=== PATIENT | female | born 1955 | race Caucasian/White ===

== ENCOUNTER 2023-04-08 09:08 | Outpatient (CLI) | payer MEDICARE, OTHER, SELFPAY | END 2023-04-08 09:09 | disposition home or self-care (01) | LOC: NFLDREF 04-11 01:27 | PROVIDERS: PCP Family Medicine; Referring Provider Family Medicine; Visit Provider Family Medicine | DX: E78.00 Pure hypercholesterolemia, unspecified (principal); R03.0 Elevated blood-pressure reading, without diagnosis of hypertension; M81.0 Age-related osteoporosis without current pathological fracture | CPT/HCPCS: 80053; 80061; 82306 ==

== ENCOUNTER 2023-07-08 08:08 | Outpatient (CLI) | payer MEDICARE, OTHER, SELFPAY | END 2023-07-08 08:09 | disposition home or self-care (01) | LOC: NFLDREF 07-10 07:38 | PROVIDERS: PCP Family Medicine; Referring Provider Family Medicine; Visit Provider Family Medicine | DX: E87.1 Hypo-osmolality and hyponatremia (principal) | CPT/HCPCS: 80048 ==

== ENCOUNTER 2023-10-02 13:40 | Outpatient (CLI) | payer MEDICARE, OTHER, SELFPAY ==
--- OUTSIDE RECORDS SUMMARY | 2023-10-02 13:43 | XMS_ITS | Clinical Summary ---
Author Organization [facility] Address [address] [place] [address] Care Team Providers Care Livestock Judging Coach Name Role Phone Rosana Quiroz MD Primary Care Provider [phone] Shara Trimble MD Unavailable [phone] Allergies Active Allergy Reactions Criticality Noted Date Comments Ciprofloxacin-Dexamethasone 07/27/19 15 rash Meperidine 01/05/2009 congestion Penicillin V 06/05/2007 Rash, hives Medications Medication Sig Dispensed Refills Start Date End Date Status amLODIPine (NORVASC) 2.5 MG tablet Take 2.5 mg by mouth every morning 08/12/2021 Active aspirin (ASA) 81 MG EC tablet Take by mouth as needed Active cholecalciferol (VITAMIN D3) 25 mcg (1000 units) capsule Take 1,000 Units by mouth every morning Active Active Problems Problem Noted Date Diagnosed Date Hyperparathyroidism (H24) 10/12/2021 Overview: Added automatically from request for surgery [id number] Immunizations Name Administration Dates Next Due COVID-19 Monovalent Booster 18+ (Moderna) 2021 Flu, Unspecified 01/20/2016 Influenza (High Dose) 3 valent vaccine ,02/05/2020 Influenza Vaccine >6 months,quad, PF 03/27/2019, 04/20/2013 Pneumo Conj 13-V (2010&after) 11/27/2019 Pneumococcal 23 valent 01/18/2021 TDAP (Adacel,Boostrix) 09/20/2014,11/12/2012 Td (Adult), Adsorbed 10/05/2007 Zoster vaccine, live 04/07/2013 Family History Medical History Relation Comments Family History Negative Brother 1 Hypertension Father at 82 Diabetes Maternal Grandfather at age 65 Cerebrovascular Disease Mother stroke i n 2002-alive 79 Heart Disease Paternal Grandfather heart disea se Hypertension Paternal Grandfather Family History Negative Sister 7 Relation Status Comments Brother Father Maternal Grandfather Maternal Grandmother Mother Alive Paternal Grandfather Paternal Grandmother Sister Social History Tobacco Use Types Packs/Day Years Used Date Smoking Tobacco: Former Cigarettes 0.5 2 Smokeless Tobacco: Never Tobacco Cessation:Counseling Given: No Comments:used to smoke about 5-6 cig per day for 1-2 years Alcohol Use Standard Drinks/Week Comments Yes 0 (1 standard drink = 0.6 oz pure alcohol) wine only-one to two glasses on weekend PHQ-2 Answer Date Recorded PHQ-2 Score 0 10/26/2021 Adolescent Education Answer Date Record ed Getting School Help Needed Not on file 02/05 Sex and Gender Information Value Date Recorded Sex Assigned at Not on file Gender Identity Not on file Sexual Orientation Not on file Last Filed Vital Signs Vital Sign Reading Time Taken Comments Blood Pressure 137/82 11/30/2021 9:18 AM CDT Pulse 94 11/30/2021 9:18 AM CDT Temperature 36.7 ??C (98 ??F) 11/06/2021 10:00 AM CDT Respiratory Rate 16 11/06/2021 10:00 AM CDT Oxygen Saturation 100% 11/30/2021 9:18 AM CDT Inhaled Oxygen Concentration - - Weight 49.9 kg (110 lb) 11/06/2021 5:56 AM CDT Height 154.9 cm (5' 1) 11/06/2021 5:56 AM CDT Body Mass Index 20.78 11/06/2021 5:56 AM CDT Plan of Treatment Health Maintenance Due Date Last Done Comments ADVANCE CARE PLANNING 1955 ANNUAL REVIEW OF HM ORDERS 1953 CT COLONOGRAPHY 1953 FIT 1955 FLEX SIG 1955 sDNA (Cologuard) 1955 COLONOSCOPY 11/24/1963 COLORECTAL CANCER SCREENING 11/24/1963 HEPATITIS C SCREENING 11/24/1971 LUNG CANCER SCREENING 11/24/2003 ZOSTER IMMUNIZATION (2 of 3) 06/02/2013 04/07/2013 RSV VACCINE ( & 60+) (1 - 1-dose 60+ series) 2013 MAMMO SCREENING 10/04/2018 10/04/2016 FALL RISK ASSESSMENT 2018 MEDICARE ANNUAL WELLNESS VISIT 01/11/2022 01/11/2021, 12/08/2019, 11/21/2018, Additional history exists COVID-19 Vaccine ( season) 2022 11/30/2021, 02/16/2021, 07/18/2020, Additional history exists PHQ-2 (once per calendar year) 2023 10/26/2021, 10/02/2021 INFLUENZA VACCINE (Season Ended) 2023 03/23/2021, 02/05/2020, 03/27/2019, Additional history exists DEXA 06/14/2024 06/14/2021, 05/24, 01/23/2019 GLUCOSE 08/16/2024 08/16/2021, 02/20, 02/14/2021, Additional history exists DTAP/TDAP/TD IMMUNIZATION (3 - Td or Tdap) 09/20/2024 09/20/2014, 11/12/2012, 10/05/2007 LIPID 02/14/2026 02/14/2021 Pneumococcal Vaccine: 65+ Years Completed 01/18/2021, 11/27/2019 HPV IMMUNIZATION Aged Out No longer e ligible based on patient's age to complete this topic IPV IMMUNIZATION Aged Out No longer e ligible based on patient's age to complete this topic MENINGITIS IMMUNIZATION Aged Out No l onger eligible based on patient's age to complete this topic RSV MONOCLONAL ANTIBODY Aged Out No l onger eligible based on patient's age to complete this topic Procedures Procedure Name Priority Date/Time Associated Diagnosis Comments GLUCOSE (EXTERNAL RESULT) Routine 08/16/2021 9:45 AM CDT DEXA - HIM SCAN 06/14/2021 12:00 AM RN PICU LIPID PANEL (EXTERNAL RESULT) Routine 02/14/2021 8:25 AM CDT MA EXTERNAL IMAGING 2D SCREENING Routine 10/04/2016 12:00 AM CDT from Last 3 Months or Most Recently Relevant to Health Maintenance Results * Glucose (External Result) (08/16/2021 9:45 AM CDT) Glucose (External) 83 70 - 100 mg/dL EXTERNAL LAB Blood 08/16/2021 9:45 AM CDT Narrative EXTERNAL LAB - 08/16/2021 9:45 AM CDT RESULTS FOUND IN CARE EVERYWHERE [address] [address] Provider Outside LAB - HIM EXTERNAL R ESULT EXTERNAL LAB External Lab * DEXA - HIM SCAN (06/14/2021 12:00 AM RN PICU) Anatomical Region Laterality Modality Other 06/14/2021 Provider Outside IMG DEXA ORDERABLES * (ABNORMAL) Lipid Panel (External Result) (02/14/2021 8:25 AM CDT) Cholesterol (External) 236(A) <200 mg/dL EXTERNAL LAB Triglycerides (External) 144 <150 mg/dL EXTERNAL LAB HDL Cholesterol (External) 61(A) 40 - 60 mg/dL EXTERNAL LAB LDL Cholesterol Calculated (External) 148 <100 mg/dL EXTERNAL LAB Blood 02/14/2021 8:25 AM CDT Narrative EXTERNAL LAB - 02/14/2021 8:25 AM CDT RESULTS FOUND IN CARE EVERYWHERE [address] [address] Provider Outside LAB - HIM EXTERNAL R ESULT Performing Organization Address City/[facility]/ZIP Co de Phone Number EXTERNAL LAB External Lab * MA Digital Archive [facility] (10/04/2016 12:00 AM CDT) Narrative Service Account, [facility] [place] - 10/12/2021 2:20 PM CDT Images were obtained from an external facility. ??Click PACS Images hyperlink to view images. ??Textual results have been scanned into the media tab. Radiology Non-Fv Credentialed Provider I MG EXTERNAL IMAGING ORDERABLES from Last 3 Months or Most Recently Relevant to Health Maintenance Care Teams Livestock Judging Coach Relationship Specialty Start Date End Date Rosana Quiroz MD PCP - General 06/14/07 Shara Trimble MD [address] [place] [address] [address] [place] [address] Surgery 09/01/21
--- OUTSIDE RECORDS SUMMARY | 2023-10-02 13:43 | XMS_ITS | Encounter Summary ---
Author Organization [facility] Address [address] [place] [address]. [place] [address] Care Team Providers Care B2B Sales Professional Name Role Phone Rosana Quiroz MD Primary Care Provider [phone] Shara Trimble MD Unavailable Shara Trimble MD Unavailable [phone] Encounter Details Date Type Department Care Team (Late st Contact Info) Description 12/01/2021 [facility] [place] [address] [address] Shara Trimble MD [address] [facility] [address] [facility] [address] [place] [address] Social History Tobacco Use Types Packs/Day Years Used Date Smoking Tobacco: Former Cigarettes 0.5 2 Smokeless Tobacco: Never Comments:used to smoke about 5-6 cig per day for 1-2 years Alcohol Use Standard Drinks/Week Comments Yes 0 (1 standard drink = 0.6 oz pure alcohol) wine only-one to two glasses on weekend PHQ-2 Answer Date Recorded PHQ-2 Score 0 10/26/2021 Sex and Gender Information Value Date Recorded Sex Assigned at Not on file Gender Identity Not on file Sexual Orientation Not on file COVID-19 Exposure Response Date Recorded In the last 10 days, have yo u been in contact with someone who was confirmed or suspected to have Coronavirus/COVID-19? No / Unsure 11/30/2021 9:13 AM CDT documented as of this encounter Plan of Treatment Not on file documented as of this encounter Visit Diagnoses Not on filedocumented in this encounter Care Teams B2B Sales Professional Relationship Specialty Start Date End Date Rosana Quiroz MD PCP - General 06/14/07 Shara Trimble MD [address] [place] [address] MD Surgery 09/01/21 Shara Trimble MD [address] [address] Assigned Surgical Provider 01/27/22 documented as of this encounter
--- OUTSIDE RECORDS SUMMARY | 2023-10-02 13:43 | XMS_ITS | Referral Summary ---
Author Organization [facility] Address [address] [place] [address] Care Team Providers Care Lace Pinner Name Role Phone Rosana Quiroz MD Primary Care Provider [phone] Shara Trimble MD Unavailable [phone] Allergies Active Allergy Reactions Criticality Noted Date [...] Overview: Added automatically from request for surgery [id number] Immunizations Name Administration Dates Next Due COVID-19 Monovalent Booster 18+ (Moderna) 2021 Flu, Unspecified 01/20/2016 Influenza (High Dose) 3 valent vaccine ,02/05/2020 Influenza Vaccine >6 months,quad, PF 03/27/2019, 04/20/2013 Pneumo Conj 13-V (2010&after) 11/27/2019 Pneumococcal 23 valent 01/18/2021 TDAP (Adacel,Boostrix) 09/20/2014,11/12/2012 Td (Adult), Adsorbed 10/05/2007 Zoster vaccine, live 04/07/2013 Social History Tobacco Use Types Packs/Day Years [...] 11/06/2021 5:56 AM CDT Plan of Treatment Not on file Procedures Procedure Name Priority Date/Time Associated Diagnosis Comments GLUCOSE (EXTERNAL RESULT) Routine 08/16/2021 9:45 AM CDT DEXA - HIM SCAN 06/14/2021 12:00 AM INSTRUCTOR HAIRSPRING LIPID PANEL (EXTERNAL RESULT) Routine 02/14/2021 8:25 [...] AM CDT RESULTS FOUND IN CARE EVERYWHERE [address] [address] Provider Outside LAB - HIM EXTERNAL R ESULT Performing Organization Address City/[facility]/ZIP Co de Phone Number EXTERNAL LAB External Lab * DEXA - HIM SCAN (06/14/2021 12:00 AM INSTRUCTOR HAIRSPRING) Anatomical Region Laterality Modality Other 06/14/2021 Provider [...] AM CDT RESULTS FOUND IN CARE EVERYWHERE [address] [address] Provider Outside LAB - HIM EXTERNAL R ESULT EXTERNAL LAB External Lab * MA Digital Archive [facility] (10/04/2016 12:00 AM CDT) Narrative Service Account, [place] - 10/12/2021 2:20 PM CDT Images were obtained from an external facility. ??Click PACS Images hyperlink to view images. ??Textual results have been scanned into the media tab. Radiology Non-Fv Credentialed Provider I MG EXTERNAL IMAGING ORDERABLES from Last 3 Months or Most Recently Relevant to Health Maintenance Care Teams Lace Pinner Relationship Specialty Start Date End Date Rosana Quiroz MD PCP - General 06/14/07 Shara Trimble MD [address] [place] [address] [address] [place] [address] Surgery 09/01/21
--- OUTSIDE RECORDS SUMMARY | 2023-10-02 13:43 | XMS_ITS | Encounter Summary ---
Author Organization [facility] Address [address] [place] [address]. [place] [address] Care Team Providers Care Decorative Engraver Apprentice Name Role Phone Rosana Quiroz MD Primary Care Provider [phone] Shara Trimble MD Unavailable [phone] Shara Trimble MD Unavailable [phone] Reason for Visit * Reason Onset Date Comments Call Back 11/03/2021 Encounter Details Date Type Department Care Team (Late st Contact Info) Description 11/03/2021 Telephone [facility] Preoperative Assessment Center [address] [place] [address] Naida Cooper APRN [address] [id number] Call Back Social History Tobacco Use Types Packs/Day Years [...] suspected to have Coronavirus/COVID-19? No / Unsure 11/06/2021 5:43 AM CDT documented as of this encounter Miscellaneous Notes * Telephone Encounter - Dipakradha Vahe - 11/03/2021 11:09 AM CDT [facility] Phone Message May a detailed message be left on voicemail: yes Reason for Call: Other: Sharron is calling in asking for a call back. She states that she has hada prescription change that she would like to speak with a PAC RN about prior to her procedure. Please call back as soon as possible to discuss. Action Taken: Message routed to: [facility] PAC Travel Screening: Not Applicable documented in this encounter Plan of Treatment Not on file documented as of this encounter Visit Diagnoses Not on filedocumented in this encounter Care Teams Decorative Engraver Apprentice Relationship Specialty Start Date End Date Rosana Quiroz MD PCP - General 06/14/07 Shara Trimble MD [address] [place] [address] Surgery 09/01/21 Shara Trimble MD [address] [place] [address] Assigned Surgical Provider 01/27/22 documented as of this encounter
--- OUTSIDE RECORDS SUMMARY | 2023-10-02 13:43 | XMS_ITS | Encounter Summary ---
Author Organization [facility] Address [address] [place] [address]. [place] [address] Care Team Providers Care Laboratory Aide Name Role Phone Rosana Quiroz MD Primary Care Provider [phone] Shara Trimble MD Unavailable [phone] Shara Trimble MD Unavailable [phone] Encounter Details Date Type Department Care Team (Late st Contact Info) Description 10/26/2021 [facility] Medical Advice Initial Department Cindy Stanford Social History Tobacco Use Types Packs/Day Years [...] suspected to have Coronavirus/COVID-19? No / Unsure 10/25/2021 10:28 AM CDT documented as of this encounter Plan of Treatment Not on file documented as of this encounter Visit Diagnoses Not on filedocumented in this encounter Care Teams Laboratory Aide Relationship Specialty Start Date End Date Rosana Quiroz MD PCP - General 06/14/07 Shara Trimble MD [address] [place] [address] Surgery 09/01/21 Shara Trimble MD [address] [id number] Assigned Surgical Provider 01/27/22 documented as of this encounter
--- OUTSIDE RECORDS SUMMARY | 2023-10-02 13:43 | XMS_ITS | Clinical Summary ---
Author Organization [facility] Address [place], [place] [address] Care Team Providers Care Hot Metal Mixer Operator Name Role Phone Darlyn Layton MD Primary Care Provider + Allergies Active Allergy Reactions Criticality Noted Date Comments Ciprofloxacin-Dexamethasone Rash 07/27/19 15 rash Meperidine 01/05/2009 congestion Penicillins Hives 01/05/2009 Medications Medication Sig Dispensed Refills Start Date End Date Status ibuprofen (ADVIL; MOTRIN) 600 mg tablet Take 1 tablet by mouth every 6 hours if needed for Pain. Maximum of 3200 mg in 24 hours. 20 tablet 0 09/23/2009 Active cholecalciferol (VITAMIN D) 1,000 unit capsule Take 1 capsule by mouth once daily. 0 Active cyanocobalamin (VITAMIN B-12) 1,000 mcg tablet Take 1 tablet by mouth once daily. 0 Active ascorbic acid, vitamin C, (VITAMIN C) 500 mg tablet Take 500 mg by mouth. Active amLODIPine (NORVASC) 2.5 mg tablet 2.5 MG ORALLY EVERY DAY Active Active Problems Problem Noted Date Diagnosed Date Endometrial polyp 09/21/2009 Hyperlipidemia LDL goal < 100 01/12/2009 Chest pain Unspecified essential hypertension Abnormal EKG Palpitations Shortness of breath Leg pain Family History Medical History Relation Name Comments Other Brother Severely handic apped, valve problems Other Daughter 2 Renal issues, h ysterectomy Other Father age 82 , multiple myeloma. Hypertension. Carotid endaractomy Diabetes Maternal Grandfather Unknown Maternal Grandmother Stroke Mother on Plavix, low blood pressure Heart Disease Paternal Grandfather Heart Disease Paternal Grandmother Blood Disease Sister 1 Good Health Sister 2 Good Health Sister 3 Seizures Sister 4 Other Sister 5 Palpitations Allergies Sister 6 Other Sister 7 Hypoglycemic Other Son 2 accide nt Relation Name Status Comments Brother Daughter 1 Alive Daughter 2 Father Maternal Grandfather Maternal Grandmother Mother Alive Paternal Grandfather Paternal Grandmother Sister 1 Sister 2 Sister 3 Sister 4 Sister 5 Sister 6 Sister 7 Son 1 Son 2 Social History Tobacco Use Types Packs/Day Years Used Date Smoking Tobacco: Former Cigarettes 0.5 3 0 04/22/1970 - 04/22/1973 Alcohol Use Standard Drinks/Week Comments No 0 (1 standard drink = 0.6 oz pur e alcohol) Occasional. None at of 05/03/09 Sex and Gender Information Value Date Recorded Sex Assigned at Not on file Gender Identity Not on file Sexual Orientation Not on file Obstetrics History Last Filed Vital Signs Vital Sign Reading Time Taken Comments Blood Pressure 185/94 05/18/2023 3:11 PM VINYL TOP INSTALLER Pulse 130 05/18/2023 3:11 PM VINYL TOP INSTALLER Temperature 36.8 ??C (98.3 ??F) 05/18/2023 3:11 PM CS T Respiratory Rate 14 05/18/2023 3:11 PM VINYL TOP INSTALLER Oxygen Saturation 100% 05/18/2023 3:11 PM VINYL TOP INSTALLER Inhaled Oxygen Concentration - - Weight 49.9 kg (110 lb) 05/18/2023 3:11 PM VINYL TOP INSTALLER Height 154.9 cm (5' 1) 05/18/2023 3:11 PM VINYL TOP INSTALLER Body Mass Index 20.78 05/18/2023 3:11 PM VINYL TOP INSTALLER Plan of Treatment Health Maintenance Due Date Last Done Comments Tdap 1964 Depression screening for age 12+ 1965 BMI (ht and wt on same day) for age 18+ 11/24/1971 Hepatitis C screening for age 18-79 11/24/1971 Tetanus booster 1973 Colonoscopy through age 75 1998 Mammogram for age 45-75 1998 Zoster (shingles) series for age 50+ (1 of 2) 11/24/2003 Lipids for age 45-75 04/25/2014 04/25/2009, 01/12/20 09 DEXA/DXA scan for age 65+ 2018 Pneumococcal series for age 65+ (1 of 1 - PCV) 2018 Influenza for age 65+ 12/22/2023 COVID-19 vaccine series Completed 01/28/2023, 11/30 Procedures Procedure Name Priority Date/Time Associated Diagnosis Comments LIPID PANEL Timed 04/25/2009 8:06 AM VINYL TOP INSTALLER Hyperlipidemia LDL Goal < 100 from Last 3 Months or Most Recently Relevant to Health Maintenance Results * LIPID PANEL (04/25/2009 8:06 AM VINYL TOP INSTALLER) CHOLESTEROL,TOTAL 183 110 - 199 mg/dL [facility] TRIGLYCERIDES 52 40 - 149 mg/dL [facility] HDL CHOLESTEROL 69 >40 mg/dL [facility] CHOL/HDL RATIO 2.65 <4.51 [facility] LDL CHOLESTEROL 104 <131 mg/dL [facility] PATIENT STATUS Fasting [facility] Blood specimen (specimen) BLOOD SPECIMEN / Unknown 04/25/2009 8:06 AM VINYL TOP INSTALLER 04/25/2009 7:56 AM VINYL TOP INSTALLER Nichole Roman MD CHEMISTRY [facility] INTERNAL ZIP [id number] [place] [address] from Last 3 Months or Most Recently Relevant to Health Maintenance Advance Directives * Full Code (Latest Code Status on File) Date Activated Date Inactivated Comments 09/23/2009 7:53 AM 09/23/2009 3:09 PM Care Teams Hot Metal Mixer Operator Relationship Specialty Start Date End Date Darlyn Layton MD [address] [place] [address] PCP - General Family Practice 05/18/23
--- OUTSIDE RECORDS SUMMARY | 2023-10-02 13:44 | XMS_ITS | Encounter Summary ---
Author Organization [facility] Address [address] [place] [address]. [place] [address] Care Team Providers Care Director Of Enrollment Name Role Phone Rosana Quiroz MD Primary Care Provider [phone] Shara Trimble MD Unavailable [phone] Shara Trimble MD Unavailable [phone] Encounter Details Date Type Department Care Team (Late st Contact Info) Description 10/26/[address] [facility] [place] [facility] Preoperative Assessment Center [address] 5th [place] [address] Aurea Broderick, RN Social History Tobacco Use Types Packs/Day Years [...] on filedocumented in this encounter Care Teams Director Of Enrollment Relationship Specialty Start Date End Date Rosana Quiroz MD PCP - General 06/14/07 Shara Trimble MD [address] [place] [id number] Surgery 09/01/21 Shara Trimble MD [address] [place] [id number] Assigned Surgical Provider 01/27/22 documented as of this encounter
--- OUTSIDE RECORDS SUMMARY | 2023-10-02 13:44 | XMS_ITS | Encounter Summary ---
Author Organization [facility] Address [address] [place] [address]. [place] [address] Care Team Providers Care Caramel Cutter Hand Name Role Phone Rosana Quiroz MD Primary Care Provider [phone] Shara Trimble MD Unavailable [phone] Shara Trimble MD Unavailable [phone] Encounter Details Date Type Department Care Team (Late st Contact Info) Description 10/17/2021 [facility] Medical Advice Initial Department Cindy Stanford [...] PHQ-2 Answer Date Recorded PHQ-2 Score 0 10/02/2021 Sex and Gender Information Value Date Recorded Sex Assigned at Not on file Gender Identity Not on file Sexual Orientation Not on file COVID-19 Exposure Response Date Recorded In the last 10 days, have yo u been in contact with someone who was confirmed or suspected to have Coronavirus/COVID-19? No / Unsure 10/18/2021 3:29 PM CDT documented as of this encounter Plan of Treatment Not on file documented as of this encounter Visit Diagnoses Not on filedocumented in this encounter Care Teams Caramel Cutter Hand Relationship Specialty Start Date End Date Rosana Quiroz MD PCP - General 06/14/07 Shara Trimble MD [address] [place] [address] [id number] Surgery 09/01/21 Shara Trimble MD [address] [id number] Assigned Surgical Provider 01/27/22 documented as of this encounter
--- OUTSIDE RECORDS SUMMARY | 2023-10-02 13:44 | XMS_ITS | Encounter Summary ---
Author Organization [facility] Address [address] [place] [address]. [place] [address] Care Team Providers Care Branch Employment Coordinator Name Role Phone Rosana Quiroz MD Primary Care Provider [phone] Shara Trimble MD Unavailable [phone] Shara Trimble MD Unavailable [phone] Encounter Details Date Type Department Care Team (Late st Contact Info) Description 06/10/2007 Office Visit-[facility] [address] [address] Oneil Son MD [address] [place] [address] Social History Tobacco Use Types Packs/Day Years Used Date Smoking Tobacco: Former Cigarettes Q uit: 06/05/1979 Comments:used to smoke about 5-6 cig per day for 1-2 years Alcohol Use Standard Drinks/Week Comments Yes 0 (1 standard drink = 0.6 oz pure alcohol) wine only-one to two glasses on weekend Sex and Gender Information Value Date Recorded Sex Assigned at Not on file Gender Identity Not on file Sexual Orientation Not on file documented as of this encounter Progress Notes * Oneil Son MD - 06/11/2007 1:41 PM CST Progress Note Created by: Oneil Son M.D. DATE: 06/10/2007 SHARRON VAIL DATE OF : 1955 AGE: [age] years old Referring Physician: ROSANA QUIROZ Referring Clinic: [facility] CURRENT DIAGNOSES 1. - Chest Pain-unspecified, 786.50 2. - Abnormal EKG, 794.31 3. Tachycardia, 785.0 ALLERGIES demerol penicillin G potassium MEDICATIONS (prior to changes made today) 1. No Medications - CHIEF COMPLAINTS Abn ekg and chest discomfort HISTORY OF PRESENT ILLNESS Thank you very much for asking me to see Sharron Vail in cardiology consultation today. This francisco 51-year-old patient who is here to discuss some chest discomfort she has been having. She describes this as a pressure like sensation in her left upper chest region. It is often associated with a sense of palpitations with her heart beating fast and hard. She has had this for a few months. It seems to be worse around the time of her menstrual cycle. She occasionally has some mild numbness in her left arm associated with this. She does not have any diaphoresis or nausea but she sometimes has asense of mild dyspnea. The episodes are completely unpredictable. They typically occur when she is anxious. They are not brought on by exertion and they occasionally occur out of the clear blue. Sharron reports that she lost her son in an accident a couple of years ago and this is about the time that her chest pain started. She also recently moved to [place] from [place] because of her 's job and upon this move she also noticed an increase in her episodes of chest discomfort. Theyseem to have gotten even worse in the last couple of months though. Cardiac risk factors are essentially negative. This patient has no history of smoking except for perhaps a year when she was in her 30s. She is not diabetic. She has a normal cholesterol of 207 with an HDL of 80 and LDL of 111 with normal triglycerides. She has what sounds like white-coat hypertension. She checks her blood pressure regularly at home and it is generally around 125/70 but in the office it is often higher and today it is 150/90. Finally, the patient has no family history of coronary artery disease. Her mother did suffer a CVA at an older age. Recently Mrs. Vail came into her primary care doctor's office and complained of this chest discomfort. She had an EKG done and it showed sinus rhythm with a rate of 88 and some very mild, nonspecific ST segment depression in the inferior and anterolateral leads. These are rather diffuse changes but are extremely mild with less than 0.5mm of depression. These findings are nonspecific. Sharron reports that she does not exercise regularly. She also admits that she doesn't follow a particularly heart healthy diet. Many of these things changed a couple of years ago when she lost arminda and changed her life style for the worse. She has recently started walking on a treadmill and has not had any chest discomfort with that activity. Physical exam today is completely normal. The blood pressure and heart rate are both within normal limits. Lungs are clear. Cardiac, abdominal and extremity exams are all normal. PAST HISTORY Past Medical Illnesses: HTN Past Cardiac Illnesses: chest pain, abnormal EKG, tachycardia Cardiology Procedures-Noninvasive: 06/06/07 Stress echo PMHx Stress Echo Results: 05/2007 Normal stress echo FAMILY HISTORY: Father - of cancer; Mother - Age 79, stroke; CARDIAC RISK FACTORS SOCIAL HISTORY Alcohol Use - socially and wine; Smoking - used to smoke but quit and stop in 1978; Diet - regular diet; Exercise - no regular exercise; Seat Belt Use - always; Occupation - retired; Residence - lives with ; Place of - [place]; REVIEW OF SYSTEMS GENERAL denies recent weight loss, weight gain, fever or chills or change in exercise tolerance. INTEGUMENTARY denies any change in hair or nails, rashes, or skin lesions. EYES denies diplopia, history of glaucoma or visual field defects. EARS, NOSE, THROAT, MOUTH denies any hearing loss, epistaxis, hoarseness or difficulty speaking. RESPIRATORY dyspnea, dyspnea with exertion CARDIOVASCULAR negative for palpitations, chest pain, orthopnea, PND, peripheral edema, syncope or claudication. ABDOMINAL denies ulcer disease, hematochezia or melena. MUSCULOSKELETAL denies any history of arthritic symptoms or back problems. NEUROLOGICAL dizziness, headaches PSYCHIATRIC denies any history of depression, substance abuse or change in cognitive functions. ENDOCRINE denies any history of thyroid disease or diabetes mellitus. HEMATOLOGICAL/IMMUNOLOGIC denies any food allergies, seasonal allergies, bleeding disorders. PHYSICAL EXAMINATION VITAL SIGNS: Blood Pressure: 150/90 Sitting, Left arm, regular cuff Pulse- 88.00/min. Weight- 112.60 lbs. Height- 61.00 Temperature- .00 CONSTITUTIONAL cooperative, alert and oriented,well developed, well nourished, in no acute distress. SKIN warm and dry to touch, no apparent skin lesions, or masses noted. HEAD normocephalic, atraumatic EYES Pupils equal and round, conjunctivae and lids unremarkable, sclera white, no xanthalasma ENT no pallor or cyanosis, dentition good NECK carotid pulses are full and equal bilaterally, JVP normal, no carotid bruit, no thyromegaly CHEST normal symmetry, no tenderness to palpation, normal respiratory excursion, no intercostal retraction, no use of accessory muscles, clear to auscultation and percussion. CARDIAC regular rhythm, S1 normal, S2 normal, No S3 or S4, Apical impulse not displaced, no murmurs, gallops or rubs detected. ABDOMEN abdomen soft, bowel sounds normoactive, no masses, no hepatosplenomegaly, non- tender, no bruits PERIPHERAL PULSES pulses full and equal in all extremities, no bruits auscultated. EXTREMITIES & BACK no deformities, clubbing, cyanosis, erythema or edema observed. There are no spinal abnormalities noted. Normal muscle strength and tone. NEUROLOGICAL no gross motor deficits noted, affect appropriate, oriented to time, person and place. MEDICATIONS UPDATED/STARTED TODAY: No Medications - ASSESSMENT/PLAN: This patient presents with complaints of chest discomfort. Her symptoms are somewhat atypical. They tend to last only a relatively brief period of time and are not related to exertion. At other times her chest pain can last hours at a time. She was recently seen in the emergency room after such an episode and she ruled out for an WI by enzymes. She also had a stress echo done at that time which was normal. This patient statistically is at low risk of coronary artery disease given her young age, lily-menopausal status and the lack of cardiac risk factors. When accompanied by her normal stress test, I think we can say with a high probability that this patient does not have significant or symptomatic coronary artery disease. I did offer Mrs. Vail the alternative of further testing. I discussed with her the possibility ofdoing a nuclear stress test versus a CT angiogram. She would prefer not to do any further testing and I think this is a perfectly reasonable decision. I did remind her that there is a small chance that we are missing something but I think this chance is on the order of 1% and further testing is notnecessary. I did remind her that if her symptoms abruptly change or worsen, she needs to let us know. I appreciate the opportunity of participating in your patient's care. If there are questions or concerns about her, please do not hesitate to call. I will plan on seeing her on an as needed basis in the future. TODAYS ORDERS 1. Return prn Oneil Son M.D. documented in this encounter Plan of Treatment Not on file documented as of this encounter Visit Diagnoses Not on filedocumented in this encounter Care Teams Branch Employment Coordinator Relationship Specialty Start Date End Date Rosana Quiroz MD PCP - General 06/14/07 Shara Trimble MD [address] [facility] [address] [place], [place] [address] MD Surgery 09/01/21 Shara Trimble MD 420 [facility] [address] [place], [place] [id number] Assigned Surgical Provider 01/27/22 documented as of this encounter
--- OUTSIDE RECORDS SUMMARY | 2023-10-02 13:44 | XMS_ITS | Encounter Summary ---
Author Organization [facility] Address [address] [place] [address]. [place] [address] Care Team Providers Care Cotton Baler Name Role Phone Rosana Quiroz MD Primary Care Provider [phone] Shara Trimble MD Unavailable [phone] Shara Trimble MD Unavailable Encounter Details Date Type Department Care Team (Late st Contact Info) Description 10/16/2021 [facility] [place] [facility] [address] 4[address] [place] [address] Shara Trimble MD [address] [facility] [address] [place] [address] Social History Tobacco Use Types [...] on filedocumented in this encounter Care Teams Cotton Baler Relationship Specialty Start Date End Date Rosana Quiroz MD PCP - General 06/14/07 Shara Trimble MD [address] [place] [address] Surgery 09/01/21 Shara Trimble MD [address] [place] [address] Assigned Surgical Provider 01/27/22 documented as of this encounter
--- OUTSIDE RECORDS SUMMARY | 2023-10-02 13:44 | XMS_ITS | Encounter Summary ---
Author Organization [facility] Address [address] [place] [address]. [place] [address] Care Team Providers Care Healthcare Receptionist Name Role Phone Rosana Quiroz MD Primary Care Provider [phone] Shara Trimble MD Unavailable [phone] Shara Trimble MD Unavailable [phone] Encounter Details Date Type Department Care Team (Late st Contact Info) Description 10/21/2021 [facility] Initial Department [facility] [...] on filedocumented in this encounter Care Teams Healthcare Receptionist Relationship Specialty Start Date End Date Rosana Quiroz MD PCP - General 06/14/07 Shara Trimble MD [address] [place] [id number] Surgery 09/01/21 Shara Trimble MD [address] [address] Assigned Surgical Provider 01/27/22 documented as of this encounter
--- OUTSIDE RECORDS SUMMARY | 2023-10-02 13:44 | XMS_ITS | Encounter Summary ---
Author Organization [facility] Address [address] [place] [address]. [place] [address] Care Team Providers Care Bsa/Aml Compliance Officer Name Role Phone Rosana Quiroz MD Primary Care Provider [phone] Shara Trimble MD Unavailable [phone] Shara Trimble MD Unavailable [phone] Encounter Details Date Type Department Care Team [...] on filedocumented in this encounter Care Teams Bsa/Aml Compliance Officer Relationship Specialty Start Date End Date Rosana Quiroz MD PCP - General 06/14/07 Shara Trimble MD [address] [place] [address] [id number] Surgery 09/01/21 Shara Trimble MD [address] [id number] Assigned Surgical Provider 01/27/22 documented as of this encounter
--- OUTSIDE RECORDS SUMMARY | 2023-10-02 13:44 | XMS_ITS | Encounter Summary ---
Author Organization [facility] Address [address] [place] [address]. [place] [address] Care Team Providers Care Human Resources Operations Specialist Name Role Phone Rosana Quiroz MD Primary Care Provider [phone] Shara Trimble MD Unavailable [phone] Shara Trimble MD Unavailable [phone] Encounter Details Date Type Department Care Team (Late st Contact Info) Description 10/12/2021 [facility] [address] 4[address] [place] [address] [facility] Social History Tobacco Use Types Packs/Day Years [...] suspected to have Coronavirus/COVID-19? No / Unsure 10/02/2021 1:59 PM CDT documented as of this encounter Plan of Treatment Not on file documented as of this encounter Visit Diagnoses Not on filedocumented in this encounter Care Teams Human Resources Operations Specialist Relationship Specialty Start Date End Date Rosana Quiroz MD PCP - General 06/14/07 Shara Trimble MD [address] [place] [address] [id number] Surgery 09/01/21 Shara Tirmble MD [address] [place] [address] Assigned Surgical Provider 01/27/22 documented as of this encounter
--- OUTSIDE RECORDS SUMMARY | 2023-10-02 13:44 | XMS_ITS | Encounter Summary ---
Author Organization [facility] Address [address] [place] [address]. [place] [address] Care Team Providers Care Naval Aircrewman Tactical Helicopter Name Role Phone Rosana Quiroz MD Primary Care Provider [phone] Shara Trimble MD Unavailable [phone] Shara Trimble MD Unavailable [phone] Encounter Details Date Type Department Care Team (Late st Contact Info) Description 10/19/2021 [facility] Medical Advice Initial Department [facility] [...] on filedocumented in this encounter Care Teams Naval Aircrewman Tactical Helicopter Relationship Specialty Start Date End Date Rosana Quiroz MD PCP - General 06/14/07 Shara Trimble MD [address] [place] [address] [id number] Surgery 09/01/21 Shara Trimble MD [address] [id number] Assigned Surgical Provider 01/27/22 documented as of this encounter
--- NOTE | 2023-10-02 14:00 | CRLHL7_ITS ---
For Patients: As a result of the Century Cures Act, medical imaging exams and procedure reports are released immediately into your electronic medical record. You may view this report before your referring provider. If you have questions, please contact your health care provider. DXA BONE MINERAL DENSITY STUDY Current height (in): 61.0. Weight (lb): 110.0. Menopause age: 52. Ethnicity: White. Reason for exam: Age-related osteoporosis. 1. Have you had a previous hip or vertebral fracture? No. 2. Have you had any fractures during your adult life which did not result from significant trauma (e.g., auto accident)? No. 3. Did either of your parents have a hip fracture? Yes. 4. Do you smoke? No. 5. Have you ever taken Glucocorticoids? No. 6. Do you have rheumatoid arthritis? No. 7. Do you have secondary osteoporosis? No. 8. Do you drink 3 or more alcoholic drinks per day? No. 9. Are you being treated for osteoporosis? No. 10. Have you ever taken any of the following medications: Actonel, Evista, Fosamax, Miacalcin, Reclast, Boniva, Forteo, HRT (i.e. estrogen/hormone therapy), Protelos, Prolia, Vitamin D, Calcium, other ??? please specify. ANSWER: Yes, vitamin D, calcium. 11. Do you have any of the following medical conditions: Anorexia or bulimia, asthma or emphysema, end stage renal disease, hyperparathyroidism, any seizure disorders, cancer, inflammatory bowel diseases, hysterectomy, other ??? please specify. ANSWER: Yes, asthma, hyperparathyroidism. 12. What was your maximum height (inches)? 61. 13. Do you perform weight bearing exercise regularly? Yes. 14. Do you regularly consume dairy products? Yes. 15. Do you drink caffeinated beverages? Yes. 16. At what age did your period start? 11. 17. Are you premenopausal? No. 18. How many full-term pregnancies have you had? 2. 19. Have you ever missed your period for more than 6 months in a row (not including or menopause)? No. TECHNIQUE: Bone mineral density study was performed using the [employer]. FINDINGS: The results of the study expressed as bone mineral density (BMD) are as follows: Lumbar spine L1 to L4: BMD: 0.641 g/cm2. T-score: -3.7. Z-score: -1.6 Neck Left: BMD: 0.555 g/cm2. T-score: -2.6. Z-score: -0.9 Right: BMD: 0.522 g/cm2. T-score: -2.9. Z-score: -1.2 Total Left: BMD: 0.725 g/cm2. T-score: -1.8. Z-score: -0.3 Right: BMD: 0.710 g/cm2. T-score: -1.9. Z-score: -0.4 IMPRESSION: Osteoporosis. Peter Cortes M.D. Body/Diagnostic Radiologist [email or web address] Transcribed: 2:45 pm DW/Dictated by: Peter Cortes MD @ 10/03/2023 2:33:00 PM (Electronically Signed)
== END 2023-10-02 13:41 | disposition home or self-care (01) ==
LOC: RAD 13:42
PROVIDERS: PCP Family Medicine; Visit Provider Family Medicine
DX: M81.0 Age-related osteoporosis without current pathological fracture (principal)
CPT/HCPCS: 77080

== ENCOUNTER 2023-10-11 14:35 | Outpatient (CLI) | payer MEDICARE, OTHER, SELFPAY ==
--- OUTSIDE RECORDS SUMMARY | 2023-10-11 14:39 | XMS_ITS | Encounter Summary ---
Author Organization [facility] Address [address] [place] [address]. [place] [address] Care Team Providers Care Elevator Troubleshooter Name Role Phone Rosana Quiroz MD Primary Care Provider Shara Trimble MD Unavailable [phone] Shara Trimble MD Unavailable [phone] Reason for Visit * Reason Onset Date Comments Call Back 11/03/2021 Encounter Details Date Type Department Care Team (Late st Contact Info) Description 11/03/2021 Telephone [facility] [address] [place] [address] Naida oCoper APRN [address] [id number] Call Back Social History Tobacco Use Types [...] on filedocumented in this encounter Care Teams Elevator Troubleshooter Relationship Specialty Start Date End Date Rosana Quiroz MD PCP - General 06/14/07 Shara Trimble MD [address] [place] [address] Surgery 09/01/21 Shara Trimble MD [address] [place] [address] Assigned Surgical Provider 01/27/22 documented as of this encounter
--- OUTSIDE RECORDS SUMMARY | 2023-10-11 14:39 | XMS_ITS | Clinical Summary ---
Author Organization [facility] Address [address] [place] [address] Care Team Providers Care Principal Network Engineer Name Role Phone Rosana Quiroz MD Primary Care Provider [phone] Shara Trimble MD Unavailable Allergies Active Allergy Reactions Criticality Noted Date [...] Overview: Added automatically from request for surgery [id number] Immunizations Name Administration Dates Next Due COVID-19 [...] DEXA - HIM SCAN 06/14/2021 12:00 AM POLYMER TESTER LIPID PANEL (EXTERNAL RESULT) Routine 02/14/2021 8:25 [...] AM CDT RESULTS FOUND IN CARE EVERYWHERE [address] [address] Provider Outside LAB - HIM EXTERNAL R ESULT EXTERNAL LAB External Lab * DEXA - HIM SCAN (06/14/2021 12:00 AM POLYMER TESTER) Anatomical Region Laterality Modality Other 06/14/2021 Provider [...] AM CDT RESULTS FOUND IN CARE EVERYWHERE [address] [address] Provider Outside LAB - HIM EXTERNAL R ESULT Performing Organization Address City/[facility]/ZIP Co de Phone Number EXTERNAL LAB External Lab * [facility] (10/04/2016 12:00 AM CDT) Narrative Service Account, [facility] - 10/12/2021 2:20 PM CDT Images were obtained from an external facility. ??Click PACS Images hyperlink to view images. ??Textual results have been scanned into the media tab. Radiology Non-Fv Credentialed Provider I MG EXTERNAL IMAGING ORDERABLES from Last 3 Months or Most Recently Relevant to Health Maintenance Care Teams Principal Network Engineer Relationship Specialty Start Date End Date Rosana Quiroz MD PCP - General 06/14/07 Shara Trimble MD [address] [place] [address] [address] [place] [address] Surgery 09/01/21
--- OUTSIDE RECORDS SUMMARY | 2023-10-11 14:39 | XMS_ITS | Encounter Summary ---
Author Organization [facility] Address [address] [place] [address]. [place] [address] Care Team Providers Care Piccolo Mechanic Name Role Phone Rosana Quiroz MD Primary Care Provider [phone] Shara Trimble MD Unavailable Shara Trimble MD Unavailable [phone] Encounter Details Date Type Department Care Team [...] on filedocumented in this encounter Care Teams Piccolo Mechanic Relationship Specialty Start Date End Date Rosana Quiroz MD PCP - General 06/14/07 Shara Trimble MD [address] [place] [address] [id number] Surgery 09/01/21 Shara Trimble MD [address] [id number] Assigned Surgical Provider 01/27/22 documented as of this encounter
--- OUTSIDE RECORDS SUMMARY | 2023-10-11 14:39 | XMS_ITS | Encounter Summary ---
Author Organization [facility] Address [address] [place] [address]. [place] [address] Care Team Providers Care Mining Support Worker Name Role Phone Rosana Quiroz MD Primary Care Provider [phone] Shara Trimble MD Unavailable [phone] Shara Trimble MD Unavailable [phone] Encounter Details Date Type Department Care Team [...] on filedocumented in this encounter Care Teams Mining Support Worker Relationship Specialty Start Date End Date Rosana Quiroz MD PCP - General 06/14/07 Shara Trimble MD [address] [place] [id number] Surgery 09/01/21 Shara Trimble MD [address] 547685 Assigned Surgical Provider 01/27/22 documented as of this encounter
--- OUTSIDE RECORDS SUMMARY | 2023-10-11 14:39 | XMS_ITS | Encounter Summary ---
Author Organization [facility] Address [address] [place] [address]. [place] [address] Care Team Providers Care Hot Frame Tender Name Role Phone Rosana Quiroz MD Primary Care Provider [phone] Shara Trimble MD Unavailable [phone] Shara Trimble MD Unavailable [phone] Encounter Details Date Type Department Care Team [...] on filedocumented in this encounter Care Teams Hot Frame Tender Relationship Specialty Start Date End Date Rosana Quiroz MD PCP - General 06/14/07 Shara Trimble MD [address] [place] [id number] Surgery 09/01/21 Shara Trimble MD [address] [address] Assigned Surgical Provider 01/27/22 documented as of this encounter
--- OUTSIDE RECORDS SUMMARY | 2023-10-11 14:39 | XMS_ITS | Encounter Summary ---
Author Organization [facility] Address [address] [place] [address]. [place] [address] Care Team Providers Care Face Cleaner Name Role Phone Rosana Quiroz MD Primary Care Provider [phone] Shara Trimble MD Unavailable [phone] Shara Trimble MD Unavailable [phone] Encounter Details Date Type Department Care Team [...] on filedocumented in this encounter Care Teams Face Cleaner Relationship Specialty Start Date End Date Rosana Quiroz MD PCP - General 06/14/07 Shara Trimble MD [address] [place] [address] [id number] Surgery 09/01/21 Shara Trimble MD [address] [id number] Assigned Surgical Provider 01/27/22 documented as of this encounter
--- OUTSIDE RECORDS SUMMARY | 2023-10-11 14:39 | XMS_ITS | Referral Summary ---
Author Organization [facility] Address [address] [place] [address] Care Team Providers Care Rn Anesthesiology Name Role Phone Rosana Quiroz MD Primary Care Provider [phone] Shara Trimble MD Unavailable [phone] Allergies Active Allergy Reactions Criticality Noted Date [...] Overview: Added automatically from request for surgery [id number] Immunizations Name Administration Dates Next Due COVID-19 [...] DEXA - HIM SCAN 06/14/2021 12:00 AM GROUND INSTRUCTOR BASIC LIPID PANEL (EXTERNAL RESULT) Routine 02/14/2021 8:25 [...] AM CDT RESULTS FOUND IN CARE EVERYWHERE [address] [address] Provider Outside LAB - HIM EXTERNAL R ESULT Performing Organization Address City/[facility]/ZIP Co de Phone Number EXTERNAL LAB External Lab * DEXA - HIM SCAN (06/14/2021 12:00 AM GROUND INSTRUCTOR BASIC) Anatomical Region Laterality Modality Other 06/14/2021 Provider [...] AM CDT RESULTS FOUND IN CARE EVERYWHERE [address] [address] Provider Outside LAB - HIM EXTERNAL R ESULT EXTERNAL LAB External Lab * MA Digital Archive [facility] (10/04/2016 12:00 AM CDT) Narrative Service Account, Quang Hornk - 10/12/2021 2:20 PM CDT Images were obtained from an external facility. ??Click PACS Images hyperlink to view images. ??Textual results have been scanned into the media tab. Radiology Non-Fv Credentialed Provider I MG EXTERNAL IMAGING ORDERABLES from Last 3 Months or Most Recently Relevant to Health Maintenance Care Teams Rn Anesthesiology Relationship Specialty Start Date End Date Rosana Quiroz MD PCP - General 06/14/07 Shara Trimble MD [address] [place] [address] 195 [place] [address] Surgery 09/01/21
--- OUTSIDE RECORDS SUMMARY | 2023-10-11 14:39 | XMS_ITS | Encounter Summary ---
Author Organization [facility] Address [address] [place] [address]. [place] [address] Care Team Providers Care Manufacturing Project Engineer Name Role Phone Rosana Quiroz MD Primary Care Provider [phone] Shara Trimble MD Unavailable [phone] Shara Trimble MD Unavailable [phone] Encounter Details Date Type Department Care Team (Late st Contact Info) Description 10/26/2021 [facility] Pre[facility] Assessment Center [address] 5th [place] [address] Aurea Broderick, RN Social History [...] on filedocumented in this encounter Care Teams Manufacturing Project Engineer Relationship Specialty Start Date End Date Rosana Quiroz MD PCP - General 06/14/07 Shara Trimble MD [address] [place] [address] [id number] Surgery 09/01/21 Shara Trimble MD [address] [place] [address] [phone] Assigned Surgical Provider 01/27/22 documented as of this encounter
--- OUTSIDE RECORDS SUMMARY | 2023-10-11 14:39 | XMS_ITS | Clinical Summary ---
Author Organization [facility] Address [place], [place] [address] Care Team Providers Care Senior Program Manager Name Role Phone Darlyn Layton MD Primary [...] Comments Blood Pressure 185/94 05/18/2023 3:11 PM BLAST SETTER Pulse 130 05/18/2023 3:11 PM BLAST SETTER Temperature 36.8 ??C (98.3 ??F) 05/18/2023 3:11 PM CS T Respiratory Rate 14 05/18/2023 3:11 PM BLAST SETTER Oxygen Saturation 100% 05/18/2023 3:11 PM BLAST SETTER Inhaled Oxygen Concentration - - Weight 49.9 kg (110 lb) 05/18/2023 3:11 PM BLAST SETTER Height 154.9 cm (5' 1) 05/18/2023 3:11 PM BLAST SETTER Body Mass Index 20.78 05/18/2023 3:11 PM BLAST SETTER Plan of Treatment Health Maintenance Due Date [...] 65+ (1 of 1 - PCV) 2018 COVID-19 vaccine series ( season) 2023 01/28/2023, 11/30/2021 Influenza for age 65+ 12/22/2023 Procedures Procedure Name Priority Date/Time Associated Diagnosis Comments LIPID PANEL Timed 04/25/2009 8:06 AM BLAST SETTER Hyperlipidemia LDL Goal < 100 from Last 3 Months or Most Recently Relevant to Health Maintenance Results * LIPID PANEL (04/25/2009 8:06 AM BLAST SETTER) CHOLESTEROL,TOTAL 183 110 - 199 mg/dL [facility] TRIGLYCERIDES 52 40 - 149 mg/dL [facility] HDL CHOLESTEROL 69 >40 mg/dL [facility] CHOL/HDL RATIO 2.65 <4.51 [facility] LDL CHOLESTEROL 104 <131 mg/dL [facility] PATIENT STATUS Fasting [facility] Blood specimen (specimen) BLOOD SPECIMEN / Unknown 04/25/2009 8:06 AM BLAST SETTER 04/25/2009 7:56 AM BLAST SETTER Nichole Roman MD CHEMISTRY [facility] INTERNAL ZIP [address] [address] from Last 3 Months or Most Recently Relevant to Health Maintenance Advance Directives * Full Code (Latest Code Status on File) Date Activated Date Inactivated Comments 09/23/2009 7:53 AM 09/23/2009 3:09 PM Care Teams Senior Program Manager Relationship Specialty Start Date End Date Darlyn Layton MD [address] [place] [address] PCP - General Family Practice 05/18/23
--- OUTSIDE RECORDS SUMMARY | 2023-10-11 14:39 | XMS_ITS | Encounter Summary ---
Author Organization [facility] Address [address] [place] [address]. [place] [address] Care Team Providers Care Grain Shipper Name Role Phone Rosana Quiroz MD Primary Care Provider [phone] Shara Trimble MD Unavailable [phone] Shara Trimble MD Unavailable [phone] Encounter Details Date Type Department Care Team (Late st Contact Info) Description 10/12/2021 [facility] [address] 4th [place] [address] [facility] Social History Tobacco Use Types Packs/Day Years [...] on filedocumented in this encounter Care Teams Grain Shipper Relationship Specialty Start Date End Date Rosana Quiroz MD PCP - General 06/14/07 Shara Trimble MD [address] [address] [id number] Surgery 09/01/21 Shara Trimble MD [address] [address] Assigned Surgical Provider 01/27/22 documented as of this encounter
--- OUTSIDE RECORDS SUMMARY | 2023-10-11 14:39 | XMS_ITS | Encounter Summary ---
Author Organization [facility] Address [address] [place] [address]. [place] [address] Care Team Providers Care Vending Machine Collector Name Role Phone Rosana Quiroz MD Primary Care Provider Shara Trimble MD Unavailable [phone] Shara Trimble MD Unavailable [phone] Encounter Details Date Type Department Care Team (Late st Contact Info) Description 12/01/2021 [facility] [address] [address] Shara Trimble MD 420 [facility] [address] [place] [address] Social History Tobacco Use Types [...] on filedocumented in this encounter Care Teams Vending Machine Collector Relationship Specialty Start Date End Date Rosana Quiroz MD PCP - General 06/14/07 Shara Trimble MD [address] [place] [address] [id number] MD Surgery 09/01/21 Shara Trimble MD [address] [id number] Assigned Surgical Provider 01/27/22 documented as of this encounter
--- OUTSIDE RECORDS SUMMARY | 2023-10-11 14:39 | XMS_ITS | Encounter Summary ---
Author Organization [facility] Address [address] [place] [address]. [place] [address] Care Team Providers Care Interface Control Officer Name Role Phone Rosana Quiroz MD Primary Care Provider [phone] Shara Trimble MD Unavailable [phone] Shara Trimble MD Unavailable [phone] Encounter Details Date Type Department Care Team (Late st Contact Info) Description 10/16/2021 [facility] Medical Advice [facility] [address] 4th [place] [address] Shara Trimble MD [address] [facility] [address] [place] [address] Social History Tobacco Use Types [...] on filedocumented in this encounter Care Teams Interface Control Officer Relationship Specialty Start Date End Date Rosana Quiroz MD PCP - General 06/14/07 Shara Trimble MD [address] [place] [address] Surgery 09/01/21 Shara Trimble MD [address] [place] [address] Assigned Surgical Provider 01/27/22 documented as of this encounter
--- OUTSIDE RECORDS SUMMARY | 2023-10-11 14:39 | XMS_ITS | Encounter Summary ---
Author Organization [facility] Address [address] [place] [address]. [place] [address] Care Team Providers Care Occupational Safety Specialist Name Role Phone Rosana Quiroz MD Primary Care Provider [phone] Shara Trimble MD Unavailable [phone] Shara Trimble MD Unavailable [phone] Encounter Details Date Type Department Care Team [...] on filedocumented in this encounter Care Teams Occupational Safety Specialist Relationship Specialty Start Date End Date Rosana Quiroz MD PCP - General 06/14/07 Shara Trimble MD [address] [place] [address] [id number] Surgery 09/01/21 Shara Trimble MD [address] 135075 Assigned Surgical Provider 01/27/22 documented as of this encounter
--- OUTSIDE RECORDS SUMMARY | 2023-10-11 14:39 | XMS_ITS | Encounter Summary ---
Author Organization [facility] Address [address] [place] [address]. [place] [address] Care Team Providers Care Maintenance Fitter Name Role Phone Rosana Quiroz MD Primary Care Provider [phone] Shara Trimble MD Unavailable [phone] Shara Trimble MD Unavailable [phone] Encounter Details Date Type Department Care Team (Late st Contact Info) Description 06/10/2007 Office Visit-[facility] [address] [address] Oneil Son MD [address] [place] [address] Social History Tobacco Use Types Packs/Day [...] old Referring Physician: ROSANA QUIROZ Referring Clinic: [facility] CURRENT DIAGNOSES 1. - Chest Pain-unspecified, [...] pain started. She also recently moved to [place] from [place] because of her 's job and upon [...] - lives with ; Place of - [place]; REVIEW OF SYSTEMS GENERAL denies recent weight [...] episode and she ruled out for an DE by enzymes. She also had a stress [...] on filedocumented in this encounter Care Teams Maintenance Fitter Relationship Specialty Start Date End Date Rosana Quiroz MD PCP - General 06/14/07 Shara Trimble MD 420 [facility] 195 [place], [place] 824[address] MD Surgery 09/01/21 Shara Trimble MD 420 [facility] 195 [place], [place] [id number] Assigned Surgical Provider 01/27/22 documented as of this encounter
--- NOTE | 2023-10-11 15:00 | CRLHL7_ITS ---
For Patients: As a result of the Century Cures Act, medical imaging exams and procedure reports are released immediately into your electronic medical record. You may view this report before your referring provider. If you have questions, please contact your health care provider. BILATERAL SCREENING MAMMOGRAM WITH COMPUTER-AIDED DETECTION AND TOMOSYNTHESIS TECHNIQUE: CC and MLO views were obtained. These mammographic images have been obtained using full-field digital technique. These mammographic images were interpreted with the benefit of computer-aided detection. Breast Tomosynthesis was used in this interpretation. COMPARISON FILM: No comparison available. FINDINGS: There are scattered areas of fibroglandular density. IMPRESSION: There is no radiographic evidence for malignancy. ASSESSMENT: BI-RADS Category 1: Negative RECOMMENDATION: Routine screening mammogram in 1 year. A lay language report of this examination will be provided to the patient. Carlos Mulligan M.D. Diagnostic Radiologist [email or web address] SP/Dictated by: Carlos Mulligan MD @ 10/23/2023 1:52:00 PM (Electronically Signed)
== END 2023-10-11 14:36 | disposition home or self-care (01) ==
LOC: MAMMO 14:37
PROVIDERS: PCP Family Medicine
DX: Z12.31 Encounter for screening mammogram for malignant neoplasm of breast (principal)
CPT/HCPCS: 77063; 77067

== ENCOUNTER 2023-11-04 11:30 | Outpatient (CLI) | payer MEDICARE, OTHER, SELFPAY ==
--- OUTSIDE RECORDS SUMMARY | 2023-11-05 20:21 | XMS_ITS | Clinical Summary ---
Author Organization [facility] Address [place], [place] [address] Care Team Providers Care Tip Stretcher Name Role Phone Darlyn Layton MD Primary [...] EKG Palpitations Shortness of breath Leg pain Encounters Date Type Department Care Team Description 10/15/2023 Lab Requisition [facility] [phone] Darlyn Layton MD from Last 3 Months Family History Medical History Relation Name Comments [...] Comments Blood Pressure 185/94 05/18/2023 3:11 PM ASSISTANT TEACHER Pulse 130 05/18/2023 3:11 PM ASSISTANT TEACHER Temperature 36.8 ??C (98.3 ??F) 05/18/2023 3:11 PM CS T Respiratory Rate 14 05/18/2023 3:11 PM ASSISTANT TEACHER Oxygen Saturation 100% 05/18/2023 3:11 PM ASSISTANT TEACHER Inhaled Oxygen Concentration - - Weight 49.9 kg (110 lb) 05/18/2023 3:11 PM ASSISTANT TEACHER Height 154.9 cm (5' 1) 05/18/2023 3:11 PM ASSISTANT TEACHER Body Mass Index 20.78 05/18/2023 3:11 PM ASSISTANT TEACHER Plan of Treatment Health Maintenance Due Date [...] 1 - PCV) 2018 COVID-19 vaccine series (3 - 2022- season) 2023 01/28/2023, 11/30/2021 Influenza for age 65+ 12/22/2023 Procedures Procedure Name Priority Date/Time Associated Diagnosis Comments PARATHYROID HORMONE-RELATED PEPTIDE (PTH-RP) Routine 10/15/2023 11:00 AM CDT LIPID PANEL Timed 04/25/2009 8:06 AM ASSISTANT TEACHER Hyperlipidemia LDL Goal < 100 from Last 3 Months or Most Recently Relevant to Health Maintenance Results * PARATHYROID HORMONE-RELATED PEPTIDE (PTH-RP) (10/15/2023 11:00 AM CDT) PTH Related Peptide <2.0 pmol/L 10/24 6:07 PM CDT [facility] Comment: This test was developed and its performance characteristics determined by [facility]. It has not been cleared or approved by the Food and Drug Administration. Reference Range: All Ages: <2.0 The PTHrP assay should not be used to exclude cancer or screen tumor patients for humoral hypercalcemia of malignancy (HHM). The results should always be assessed in conjunction with the patient's medical history, clinical examination, and other findings. If test results are clinically discordant, please contact the laboratory. Blood BLOOD SPECIMEN / Unknown Client Collect / Unknown 10/15/2023 11:00 AM CDT 10/15/2023 5:16 PM CDT Narrative [facility] ([facility]) - 10/25/2023 6:07 PM CDT Performed at: ??01 - [facility] [employer] [address] [place] [address] ??[id number] Golf Player Assistant: Bogdan Fishman MD, Phone: ??[phone] Darlyn Layton MD SEND OUTS [facility] ([facility]) [address] [place] [address], * LIPID PANEL (04/25/2009 8:06 AM ASSISTANT TEACHER) CHOLESTEROL,TOTAL 183 110 - 199 mg/dL [facility] TRIGLYCERIDES 52 40 - 149 mg/dL [facility] HDL CHOLESTEROL 69 >40 mg/dL [facility] CHOL/HDL RATIO 2.65 <4.51 [facility] LDL CHOLESTEROL 104 <131 mg/dL [facility] PATIENT STATUS Fasting [facility] Blood specimen (specimen) BLOOD SPECIMEN / Unknown 04/25/2009 8:06 AM ASSISTANT TEACHER 04/25/2009 7:56 AM ASSISTANT TEACHER Nichole Roman MD CHEMISTRY [facility] INTERNAL ZIP [phone] [place] [address] from Last 3 Months or Most Recently Relevant to Health Maintenance Advance Directives * Full Code (Latest Code Status on File) Date Activated Date Inactivated Comments 09/23/2009 7:53 AM 09/23/2009 3:09 PM Care Teams Tip Stretcher Relationship Specialty Start Date End Date Darlyn Layton MD [address] [place] [address] PCP - General Family Practice 05/18/23
--- OUTSIDE RECORDS SUMMARY | 2023-11-05 20:21 | XMS_ITS | Patient Health Record ---
Author Organization [facility] Address [address] [place] [address] Care Team Providers Care Genomics Scientist Name Role Phone None, None Primary Care Provider UnavailSTEPHANIE Godfrey Unavailable [phone] Master Phillips Unavailable Unavailable JUAN PENN Unavailable [phone] Allergies Allergen (clinical drug ingredient) Drug/Non Drug Allergy documented on EMR Reaction Allergy Type Onset Date Status ciprofloxacin Cipro Unknown Drug Allergy Act zayda meperidine Demerol Unknown Drug Allergy Active Penicillin Unknown Drug Allergy Active Reason For Referral No Information Medications Medication SIG (Take, Route, Frequency, Duration) Notes Start Date End Date Status Fluocinolone Acetonide 0.01 % 5 drops to affected ear up to twice a day as needed for itching, use fewer than 4 times a week. Externally Twice a day for 30 days 01/09/2023 Active Tylenol Active amLODIPine Besylate 5 MG 1 tablet Orally Once a day Active Aspirin Active Fluocinolone Acetonide 0.01 % 3-4 drops into affected ear up to twice a day as needed for itching Otic Twice a day for 30 days 01/24/2022 Active Social History Tobacco Use: Social History Observation Description Date Details (start date - stop date) Never Smoker NA - NA Tobacco use/smoking Question Answer Notes Are you a nonsmoker Problems Problem Type SNOMED Code ICD Code Onset Dates Problem Status W/U Status Risk Notes Problem 66698367 Cerumen impaction (380.4) Active confirmed Problem 18362214 Otitis media (382.9) Active confirmed Problem 25211923 Chronic dermatitis (692.9) Active confirmed Problem 80477552 Bilateral impacted cerumen (H61.23) Active confirmed Problem 7118900480181258 Dermatitis of both ear canals (H60.543) Active confirmed Vital Signs Temperature 97.4 degrees Fahrenheit 01/09/2023 Height-cm 154.94 cm 10/04/2023 Weight-kg 49.9 kg 10/04/2023 Height 61 in 10/04/2023 Weight 110 lbs 10/04/2023 BMI 20.78 kg/m2 10/04/2023 Procedures Procedure Date Ordered Date Performed Result Body Sit e Cerumen removal (bilateral) 01/09/2023 01/09/2023 N/A Encounters Encounter Location Date Provider Diagnosis [facility] [address] [facility] [address] [place] [address] 01/09/2023 JUAN PENN Dermatitis of both ear canals H60.543 and Impacted cerumen, bilateral H61.23 [facility] [address] [facility] [address] [place] [address] 10/04/2023 STEPHANIE DAVIS Bilateral impacted cerumen H61.23 and Dermatitis of both ear canals H60.543 Assessments Encounter Date Diagnosis (ICD Code) Assessment Notes Treatment Notes Treatment Clinical Notes 01/09/2023 Dermatitis of both ear canals (ICD-10 - H60.543) Both ears were cleared of impacted cerumen. She does have mild dry skin on bilateral external auditory canal bilaterally. We discussed use of mineral oil or fluocinolone. She would like a refill of the medication and one with center pharmacy. All questions were answered and she is in agreement with the plan. She will return to see me in six months. 01/09/2023 Impacted cerumen, bilateral (ICD-10 - H61.23) 10/04/2023 Bilateral impacted cerumen (ICD-10 - H61.23) 10/04/2023 Dermatitis of both ear canals (ICD-10 - H60.543) Plan Of Treatment No Information Insurance Providers Payer Name Payer Address Payer Phone Subscriber Number Group Number Insured Name Patient Relationship to Insured Coverage Start Date Coverage End Date MEDICARE [address] [place] [address] [id number] Sharron Mehta Self - patient is the insured 9 S Medicare Supplement [address] [place] [address] [id number] Tyson Sharron Self - patient is the insured 9 Medical (General) History Medical History History ICD Code asthma Basil cell skin ca hypertension Surgical History Surgery Date(Month/Year) Right ear graft 2010 Hysteroscopy 2008 parathyroidectomy 2021 Hospitalization History Reason Date(Month/Year) Same as Surgical history
--- OUTSIDE RECORDS SUMMARY | 2023-11-05 20:21 | XMS_ITS | Encounter Summary ---
Author Organization [facility] Address [address] [place] [address]. [place] [address] Care Team Providers Care Promotions Team Leader Name Role Phone Rosana Quiroz MD Primary Care Provider [phone] Shara Trimble MD Unavailable [phone] Shara Trimble MD Unavailable [phone] Encounter Details Date Type Department Care Team [...] on filedocumented in this encounter Care Teams Promotions Team Leader Relationship Specialty Start Date End Date Rosana Quiroz MD PCP - General 06/14/07 Shara Trimble MD [address] [place] [address] [id number] Surgery 09/01/21 Shara Trimble MD [address] [phone] Assigned Surgical Provider 01/27/22 documented as of this encounter
--- OUTSIDE RECORDS SUMMARY | 2023-11-05 20:21 | XMS_ITS | Encounter Summary ---
Author Organization [facility] Address [address] [place] [address]. [place] [address] Care Team Providers Care Gate Attendant Name Role Phone Rosana Quiroz MD Primary Care Provider [phone] Shara Trimble MD Unavailable [phone] Shara Trimble MD Unavailable [phone] Encounter Details Date Type Department Care Team [...] on filedocumented in this encounter Care Teams Gate Attendant Relationship Specialty Start Date End Date Rosana Quiroz MD PCP - General 06/14/07 Shara Trimble MD [address] [place] [address] [id number] Surgery 09/01/21 Shara Trimble MD [address] 301[address] Assigned Surgical Provider 01/27/22 documented as of this encounter
--- OUTSIDE RECORDS SUMMARY | 2023-11-05 20:21 | XMS_ITS | Encounter Summary ---
Author Organization [facility] Address [address] [place] [address]. [place] [address] Care Team Providers Care Surgical Services Asst Name Role Phone Rosana Quiroz MD Primary Care Provider [phone] Shara Trimble MD Unavailable [phone] Shara Trimble MD Unavailable Encounter Details Date Type Department Care Team (Late st Contact Info) Description 10/16/2021 [facility] Medical Advice [facility] [address] 4th [place] [address] Shara Trimble MD [address] [facility] [address] [place] [address] Social History Tobacco Use Types [...] on filedocumented in this encounter Care Teams Surgical Services Asst Relationship Specialty Start Date End Date Rosana Quiroz MD PCP - General 06/14/07 Shara Trimble MD [address] [place] [address] Surgery 09/01/21 Shara Trimble MD [address] [place] [address] Assigned Surgical Provider 01/27/22 documented as of this encounter
--- OUTSIDE RECORDS SUMMARY | 2023-11-05 20:21 | XMS_ITS | Encounter Summary ---
Author Organization [facility] Address [address] [place] [address]. [place] [address] Care Team Providers Care Manufacturing Director Name Role Phone Rosana Quiroz MD Primary Care Provider [phone] Shara Trimble MD Unavailable [phone] Shara Trimble MD Unavailable [phone] Encounter Details Date Type Department Care Team [...] filedocumented in this encounter Care Teams Manufacturing Director Relationship Specialty Start Date End Date Rosana Quiroz MD PCP - General 06/14/07 Shara Trimble MD [address] [place] [address] [id number] Surgery 09/01/21 Shara Trimble MD [address] 835885 Assigned Surgical Provider 01/27/22 documented as of this encounter
--- OUTSIDE RECORDS SUMMARY | 2023-11-05 20:21 | XMS_ITS | Clinical Summary ---
Author Organization [facility] Address [address] [place] [address] Care Team Providers Care Curb Setter Name Role Phone Rosana Quiroz MD Primary Care Provider [phone] Shara Trimble MD Unavailable [phone] Allergies Active Allergy Reactions Criticality Noted Date [...] Overview: Added automatically from request for surgery [id number] Immunizations Name Administration Dates Next Due COVID-19 [...] calendar year) 2023 10/26/2021, 10/02/2021 INFLUENZA VACCINE (#1) 2023 , 02/05/2020, 03/27/2019, Additional history exists DEXA 06/14/2024 [...] DEXA - HIM SCAN 06/14/2021 12:00 AM NEUROLOGY NURSE LIPID PANEL (EXTERNAL RESULT) Routine 02/14/2021 8:25 [...] AM CDT RESULTS FOUND IN CARE EVERYWHERE [address] [address] Provider Outside LAB - HIM EXTERNAL R ESULT EXTERNAL LAB External Lab * DEXA - HIM SCAN (06/14/2021 12:00 AM NEUROLOGY NURSE) Anatomical Region Laterality Modality Other 06/14/2021 Provider [...] AM CDT RESULTS FOUND IN CARE EVERYWHERE [address] [address] Provider Outside LAB - HIM EXTERNAL R ESULT Performing Organization Address City/[facility]/ZIP Co de Phone Number EXTERNAL LAB External Lab * MA Digital Archive [place] (10/04/2016 12:00 AM CDT) Narrative Service Account, Ob [place] - 10/12/2021 2:20 PM CDT Images were obtained from an external facility. ??Click PACS Images hyperlink to view images. ??Textual results have been scanned into the media tab. Radiology Non-Fv Credentialed Provider I MG EXTERNAL IMAGING ORDERABLES from Last 3 Months or Most Recently Relevant to Health Maintenance Care Teams Curb Setter Relationship Specialty Start Date End Date Rosana Quiroz MD PCP - General 06/14/07 Shara Trimble MD [address] [place] [address] 195 [place] [address] Surgery 09/01/21
--- OUTSIDE RECORDS SUMMARY | 2023-11-05 20:21 | XMS_ITS | Encounter Summary ---
Author Organization [facility] Address [address] [place] [address]. [place] [address] Care Team Providers Care Sales Broker Name Role Phone Rosana Quiroz MD Primary Care Provider [phone] Shara Trimble MD Unavailable Shara Trimble MD Unavailable [phone] Encounter Details Date Type Department Care Team (Late st Contact Info) Description 12/01/2021 [facility] Medical Advice [address] [address] Shara Trimble MD 420 [facility] 195 [place] [address] Social History Tobacco Use Types [...] on filedocumented in this encounter Care Teams Sales Broker Relationship Specialty Start Date End Date Rosana Quiroz MD PCP - General 06/14/07 Shara Trimble MD [address] [place] [address] [id number] MD Surgery 09/01/21 Shara Trimble MD [address] [id number] Assigned Surgical Provider 01/27/22 documented as of this encounter
--- OUTSIDE RECORDS SUMMARY | 2023-11-05 20:21 | XMS_ITS | Encounter Summary ---
Author Organization [facility] Address [address] [place] [address]. [place] [address] Care Team Providers Care Director Of Cardiac Rehabilitation Name Role Phone Rosana Quiroz MD Primary Care Provider [phone] Shara Trimble MD Unavailable [phone] Shara Trimble MD Unavailable [phone] Encounter Details Date Type Department Care Team (Late st Contact Info) Description 10/12/2021 [facility] [address] 4th [place] [address] [facility] Social History Tobacco Use Types Packs/Day Years [...] in this encounter Care Teams Director Of Cardiac Rehabilitation Relationship Specialty Start Date End Date Rosana Quiroz MD PCP - General 06/14/07 Shara Trimble MD [address] [place] [address] Surgery 09/01/21 Shara Trimble MD [address] [place] [address] Assigned Surgical Provider 01/27/22 documented as of this encounter
--- OUTSIDE RECORDS SUMMARY | 2023-11-05 20:21 | XMS_ITS | Encounter Summary ---
Author Organization [facility] Address [address] [place] [address]. [place] [address] Care Team Providers Care Tank Wagon Driver Name Role Phone Rosana Quiroz MD Primary Care Provider [phone] Shara Trimble MD Unavailable [phone] Shara Trimble MD Unavailable [phone] Reason for Visit * Reason Onset Date Comments Call Back 11/03/2021 Encounter Details Date Type Department Care Team (Late st Contact Info) Description 11/03/2021 Telephone [facility] Pre[facility] Assessment Center [address] [place] [address] [place] [address] Naida Cooper APRN [address] [id number] Call Back Social History Tobacco Use Types [...] on filedocumented in this encounter Care Teams Tank Wagon Driver Relationship Specialty Start Date End Date Rosana Quiroz MD PCP - General 06/14/07 Shara Trimble MD [address] [place] [address] Surgery 09/01/21 Shara Trimble MD [address] [place] [address] Assigned Surgical Provider 01/27/22 documented as of this encounter
--- OUTSIDE RECORDS SUMMARY | 2023-11-05 20:21 | XMS_ITS | Encounter Summary ---
Author Organization [facility] Address [address] [place] [address]. [place] [address] Care Team Providers Care Machine Fancy Stitcher Name Role Phone Rosana Quiroz MD Primary Care Provider [phone] Shara Trimble MD Unavailable [phone] Shara Trimble MD Unavailable [phone] Encounter Details Date Type Department Care Team [...] on filedocumented in this encounter Care Teams Machine Fancy Stitcher Relationship Specialty Start Date End Date Rosana Quiroz MD PCP - General 06/14/07 Shara Trimble MD [address] [place] [address] [id number] Surgery 09/01/21 Shara Trimble MD [address] [phone] Assigned Surgical Provider 01/27/22 documented as of this encounter
--- OUTSIDE RECORDS SUMMARY | 2023-11-05 20:21 | XMS_ITS | Encounter Summary ---
Author Organization [facility] Address [address] [place] [address]. [place] [address] Care Team Providers Care Pmo Analyst Name Role Phone Rosana Quiroz MD Primary Care Provider [phone] Shara Trimble MD Unavailable [phone] Shara Trimble MD Unavailable [phone] Encounter Details Date Type Department Care Team (Late st Contact Info) Description 10/26/2021 [facility] Medical [facility] Preoperative Assessment Center [address] 5th [place] [address] Aurea Broderick, RN Social History [...] on filedocumented in this encounter Care Teams Pmo Analyst Relationship Specialty Start Date End Date Rosana Quiroz MD PCP - General 06/14/07 Shara Trimble MD [address] [place] [address] 568005 Surgery 09/01/21 Shara Trimble MD [address] [place] [address] [id number] Assigned Surgical Provider 01/27/22 documented as of this encounter
--- OUTSIDE RECORDS SUMMARY | 2023-11-05 20:21 | XMS_ITS | Referral Summary ---
Author Organization [employer] Address [address] [place] [address] Care Team Providers Care Roofer Name Role Phone Rosana Quiroz MD Primary Care Provider [phone] Shara Trimble MD Unavailable [phone] Allergies Active Allergy Reactions Criticality Noted Date [...] Overview: Added automatically from request for surgery [id number] Immunizations Name Administration Dates Next Due COVID-19 [...] DEXA - HIM SCAN 06/14/2021 12:00 AM VAPOR COATER LIPID PANEL (EXTERNAL RESULT) Routine 02/14/2021 8:25 [...] AM CDT RESULTS FOUND IN CARE EVERYWHERE [address] [address] Provider Outside LAB - HIM EXTERNAL R ESULT Performing Organization Address City/[facility]/ZIP Co de Phone Number EXTERNAL LAB External Lab * DEXA - HIM SCAN (06/14/2021 12:00 AM VAPOR COATER) Anatomical Region Laterality Modality Other 06/14/2021 Provider [...] AM CDT RESULTS FOUND IN CARE EVERYWHERE [address] [address] Provider Outside LAB - HIM EXTERNAL R ESULT EXTERNAL LAB External Lab * MA Digital Archive [employer] (10/04/2016 12:00 AM CDT) Narrative Service Account, Quang Hornk - 10/12/2021 2:20 PM CDT Images were obtained from an external facility. ??Click PACS Images hyperlink to view images. ??Textual results have been scanned into the media tab. Radiology Non-Fv Credentialed Provider I MG EXTERNAL IMAGING ORDERABLES from Last 3 Months or Most Recently Relevant to Health Maintenance Care Teams Roofer Relationship Specialty Start Date End Date Rosana Quiroz MD PCP - General 06/14/07 Shara Trimble MD [address] [place] [address] 195 [place] [address] Surgery 09/01/21
--- OUTSIDE RECORDS SUMMARY | 2023-11-05 20:21 | XMS_ITS | Encounter Summary ---
Author Organization [facility] Address [address] [place] [address]. [place] [address] Care Team Providers Care Education Nurse Name Role Phone Rosana Quiroz MD Primary Care Provider [phone] Shara Trimble MD Unavailable [phone] Shara Trimble MD Unavailable [phone] Encounter Details Date Type Department Care Team (Late st Contact Info) Description 06/10/2007 Office Visit-[facility] [address] [address] Oneil Son MD [address] [place] [address] Social History Tobacco Use Types Packs/Day [...] old Referring Physician: ROSANA QUIROZ Referring Clinic: [facility] CURRENT DIAGNOSES 1. - Chest [...] pain started. She also recently moved to [place] from [place] because of her 's job and upon [...] - lives with ; Place of - [place]; REVIEW OF SYSTEMS GENERAL denies recent weight [...] episode and she ruled out for an DC by enzymes. She also had a stress [...] on filedocumented in this encounter Care Teams Education Nurse Relationship Specialty Start Date End Date Rosana Quiroz MD PCP - General 06/14/07 Shara Trimble MD 420 [facility] 195 [place], [place] [id number] MD Surgery 09/01/21 Shara Trimble MD 420 [facility] 195 [place], [place] [phone] Assigned Surgical Provider 01/27/22 documented as of this encounter
--- OUTSIDE RECORDS SUMMARY | 2023-11-05 20:21 | XMS_ITS | Encounter Summary ---
Author Organization [place] Address [address] [place] [address]. [place] [address] Care Team Providers Care Warehouser Name Role Phone Rosana Quiroz MD Primary Care Provider [phone] Shara Trimble MD Unavailable [phone] Shara Trimble MD Unavailable [phone] Encounter Details Date Type Department Care Team [...] on filedocumented in this encounter Care Teams Warehouser Relationship Specialty Start Date End Date Rosana Quiroz MD PCP - General 06/14/07 Shara Trimble MD [address] [place] [address]57[address] Surgery 09/01/21 Shara Trimble MD [address] [id number] Assigned Surgical Provider 01/27/22 documented as of this encounter
== END 2023-11-04 11:31 | disposition home or self-care (01) ==
LOC: NFLDREF 11-05 20:18
PROVIDERS: PCP Family Medicine; Referring Provider Family Medicine; Visit Provider Family Medicine
DX: E21.3 Hyperparathyroidism, unspecified (principal)
CPT/HCPCS: 83970

== ENCOUNTER 2023-12-04 11:18 | Outpatient (CLI) | payer MEDICARE, OTHER, SELFPAY ==
--- OUTSIDE RECORDS SUMMARY | 2023-12-04 11:21 | XMS_ITS | Encounter Summary ---
Author Organization [facility] Address [address] [place] [address]. [place] [address] Care Team Providers Care Fighter Pilot Name Role Phone Rosana Quiroz MD Primary Care Provider [phone] Shara Trimble MD Unavailable [phone] Shara Trimble MD Unavailable [phone] Encounter Details Date Type Department Care Team [...] on filedocumented in this encounter Care Teams Fighter Pilot Relationship Specialty Start Date End Date Rosana Quiroz MD PCP - General 06/14/07 Shara Trimble MD [address] [place] [address] [id number] Surgery 09/01/21 Shara Trimble MD [address] [address] Assigned Surgical Provider 01/27/22 documented as of this encounter
--- OUTSIDE RECORDS SUMMARY | 2023-12-04 11:21 | XMS_ITS | Encounter Summary ---
Author Organization [facility] Address [address] [place] [address]. [place] [address] Care Team Providers Care Lot Boss Name Role Phone Rosana Quiroz MD Primary Care Provider [phone] Shara Trimble MD Unavailable [phone] Shara Trimble MD Unavailable [phone] Encounter Details Date Type Department Care Team (Late st Contact Info) Description 10/26/2021 [facility] Pre[facility] [address] 5th [place] [address] Aurea Broderick, RN Social History [...] on filedocumented in this encounter Care Teams Lot Boss Relationship Specialty Start Date End Date Rosana Quiroz MD PCP - General 06/14/07 Shara Trimble MD [address] [place] [address] [id number] Surgery 09/01/21 Shara Trimble MD [address] [place] [address] [phone] Assigned Surgical Provider 01/27/22 documented as of this encounter
--- OUTSIDE RECORDS SUMMARY | 2023-12-04 11:21 | XMS_ITS | Encounter Summary ---
Author Organization [facility] Address [address] [place] [address]. [place] [address] Care Team Providers Care Plywood Patcher Name Role Phone Rosana Quiroz MD Primary Care Provider [phone] Shara Trimble MD Unavailable [phone] Shara Trimble MD Unavailable [phone] Encounter Details Date Type Department Care Team (Late st Contact Info) Description 12/01/2021 [facility] Medical Advice [address] [address] Shara Trimble MD 420 [facility] 195 [place] [address] Social History Tobacco Use Types [...] on filedocumented in this encounter Care Teams Plywood Patcher Relationship Specialty Start Date End Date Rosana Quiroz MD PCP - General 06/14/07 Shara Trimble MD [address] [place] [address] [id number] MD Surgery 09/01/21 Shara Trimble MD [address] [phone] Assigned Surgical Provider 01/27/22 documented as of this encounter
--- OUTSIDE RECORDS SUMMARY | 2023-12-04 11:21 | XMS_ITS | Clinical Summary ---
Author Organization [facility] Address [place], [place] [address] Care Team Providers Care Press Secretary Name Role Phone Darlyn Layton MD Primary [...] Department Care Team Description 10/15/2023 Lab Requisition [facility] [phone] Darlyn Layton MD from Last 3 Months [...] Comments Blood Pressure 185/94 05/18/2023 3:11 PM FURNITURE SERVICER Pulse 130 05/18/2023 3:11 PM FURNITURE SERVICER Temperature 36.8 ??C (98.3 ??F) 05/18/2023 3:11 PM CS T Respiratory Rate 14 05/18/2023 3:11 PM FURNITURE SERVICER Oxygen Saturation 100% 05/18/2023 3:11 PM FURNITURE SERVICER Inhaled Oxygen Concentration - - Weight 49.9 kg (110 lb) 05/18/2023 3:11 PM FURNITURE SERVICER Height 154.9 cm (5' 1) 05/18/2023 3:11 PM FURNITURE SERVICER Body Mass Index 20.78 05/18/2023 3:11 PM FURNITURE SERVICER Plan of Treatment Health Maintenance Due Date [...] CDT LIPID PANEL Timed 04/25/2009 8:06 AM FURNITURE SERVICER Hyperlipidemia LDL Goal < 100 from Last 3 Months or Most Recently Relevant to Health Maintenance Results * PARATHYROID HORMONE-RELATED PEPTIDE (PTH-RP) (10/15/2023 11:00 AM CDT) PTH Related Peptide <2.0 pmol/L 10/24 6:07 PM CDT [facility] Comment: This test was developed and its performance characteristics determined by [facility]. It has not been cleared or approved [...] AM CDT 10/15/2023 5:16 PM CDT Narrative [facility] - 10/25/2023 6:07 PM CDT Performed at: ??01 - [employer] [address] [place] [address] ??[id number] Data Entry Specialist: Bogdan Fishman MD, Phone: ??[phone] Darlyn Layton MD SEND OUTS [facility]) [address] [place] [address], * LIPID PANEL (04/25/2009 8:06 AM FURNITURE SERVICER) CHOLESTEROL,TOTAL 183 110 - 199 mg/dL [facility] TRIGLYCERIDES 52 40 - 149 mg/dL [facility] HDL CHOLESTEROL 69 >40 mg/dL [facility] CHOL/HDL RATIO 2.65 <4.51 [facility] LDL CHOLESTEROL 104 <131 mg/dL [facility] PATIENT STATUS Fasting [facility] Blood specimen (specimen) BLOOD SPECIMEN / Unknown 04/25/2009 8:06 AM FURNITURE SERVICER 04/25/2009 7:56 AM FURNITURE SERVICER Nichole Roman MD CHEMISTRY [facility] INTERNAL ZIP [address] [place] [address] from Last 3 Months or Most Recently Relevant to Health Maintenance Advance Directives * Full Code (Latest Code Status on File) Date Activated Date Inactivated Comments 09/23/2009 7:53 AM 09/23/2009 3:09 PM Care Teams Press Secretary Relationship Specialty Start Date End Date Darlyn Layton MD [address] [place] [address] PCP - General Family Practice 05/18/23
--- OUTSIDE RECORDS SUMMARY | 2023-12-04 11:21 | XMS_ITS | Encounter Summary ---
Author Organization [facility] Address [address] [place] [address]. [place] [address] Care Team Providers Care Archives Director Name Role Phone Rosana Quiroz MD Primary Care Provider [phone] Shara Trimble MD Unavailable [phone] Shara Trimble MD Unavailable [phone] Encounter Details Date Type Department Care Team [...] on filedocumented in this encounter Care Teams Archives Director Relationship Specialty Start Date End Date Rosana Quiroz MD PCP - General 06/14/07 Shara Trimble MD [address] [place] [address] [id number] Surgery 09/01/21 Shara Trimble MD [address] 603125 Assigned Surgical Provider 01/27/22 documented as of this encounter
--- OUTSIDE RECORDS SUMMARY | 2023-12-04 11:21 | XMS_ITS | Encounter Summary ---
Author Organization [facility] Address [address] [place] [address]. [place] [address] Care Team Providers Care Mix House Tender Name Role Phone Rosana Quiroz MD Primary Care Provider [phone] Shara Trimble MD Unavailable [phone] Shara Trimble MD Unavailable [phone] Reason for Visit * Reason Onset Date Comments Call Back 11/03/2021 Encounter Details Date Type Department Care Team (Late st Contact Info) Description 11/03/2021 Telephone [facility] Preoperative Assessment Center [address] [place] [address] Naida Cooper APRN [address] [phone] Call Back Social History Tobacco Use Types [...] on filedocumented in this encounter Care Teams Mix House Tender Relationship Specialty Start Date End Date Rosana Qurioz MD PCP - General 06/14/07 Shara Trimble MD [address] [place] [address] Surgery 09/01/21 Shara Trimble MD [address] [place] [address] Assigned Surgical Provider 01/27/22 documented as of this encounter
--- OUTSIDE RECORDS SUMMARY | 2023-12-04 11:21 | XMS_ITS | Encounter Summary ---
Author Organization [facility] Address [address] [place] [address]. [place] [address] Care Team Providers Care Truck Packer Name Role Phone Rosana Quiroz MD Primary Care Provider [phone] Shara Trimble MD Unavailable [phone] Shara Trimble MD Unavailable [phone] Encounter Details Date Type Department Care Team [...] on filedocumented in this encounter Care Teams Truck Packer Relationship Specialty Start Date End Date Rosana Quiroz MD PCP - General 06/14/07 Shara Trimble MD [address] [place] [address] 668335 Surgery 09/01/21 Shara Trimble MD [address] [phone] Assigned Surgical Provider 01/27/22 documented as of this encounter
--- OUTSIDE RECORDS SUMMARY | 2023-12-04 11:21 | XMS_ITS | Encounter Summary ---
Author Organization [facility] Address [address] [place] [address]. [place] [address] Care Team Providers Care Cupola Repairer Name Role Phone Rosana Quiroz MD Primary Care Provider [phone] Shara Trimble MD Unavailable [phone] Shara Trimble MD Unavailable [phone] Encounter Details Date Type Department Care Team [...] on filedocumented in this encounter Care Teams Cupola Repairer Relationship Specialty Start Date End Date Rosana Quiroz MD PCP - General 06/14/07 Shara Trimble MD [address] [place] [address] [id number] Surgery 09/01/21 Shara Trimble MD [address] [phone] Assigned Surgical Provider 01/27/22 documented as of this encounter
--- OUTSIDE RECORDS SUMMARY | 2023-12-04 11:21 | XMS_ITS | Clinical Summary ---
Author Organization [facility] Address [address] [place] [address] Care Team Providers Care Forest Technology Professor Name Role Phone Rosana Quiroz MD Primary Care Provider [phone] Shara Trimble MD Unavailable [phone] Allergies Active Allergy Reactions Criticality Noted Date [...] Overview: Added automatically from request for surgery [id number] Immunizations Name Administration Dates Next Due COVID-19 [...] DEXA - HIM SCAN 06/14/2021 12:00 AM ELECTRIC CONTAINER TESTER LIPID PANEL (EXTERNAL RESULT) Routine 02/14/2021 [...] AM CDT RESULTS FOUND IN CARE EVERYWHERE [address] [address] Provider Outside LAB - HIM EXTERNAL R ESULT EXTERNAL LAB External Lab * DEXA - HIM SCAN (06/14/2021 12:00 AM ELECTRIC CONTAINER TESTER) Anatomical Region Laterality Modality Other 06/14/2021 [...] AM CDT RESULTS FOUND IN CARE EVERYWHERE [address] [address] Provider Outside LAB - HIM EXTERNAL R ESULT Performing Organization Address City/[facility]/ZIP Co de Phone Number EXTERNAL LAB External Lab * [place] Digital Archive [place] (10/04/2016 12:00 AM CDT) Narrative Service Account, Ob [place] - 10/12/2021 2:20 PM CDT Images were obtained from an external facility. ??Click PACS Images hyperlink to view images. ??Textual results have been scanned into the media tab. Radiology Non-Fv Credentialed Provider I MG EXTERNAL IMAGING ORDERABLES from Last 3 Months or Most Recently Relevant to Health Maintenance Care Teams Forest Technology Professor Relationship Specialty Start Date End Date Rosana Quiroz MD PCP - General 06/14/07 Shara Trimble MD [address] [place] [address] 195 [place] [address] Surgery 09/01/21
--- OUTSIDE RECORDS SUMMARY | 2023-12-04 11:21 | XMS_ITS | Referral Summary ---
Author Organization [facility] Address [address] [place] [address] Care Team Providers Care Auto Self Service Station Attendant Name Role Phone Rosana Quiroz MD Primary Care Provider [phone] Shara Trimble MD Unavailable [phone] Allergies Active Allergy Reactions Criticality Noted Date [...] Overview: Added automatically from request for surgery [id number] Immunizations Name Administration Dates Next Due COVID-19 [...] DEXA - HIM SCAN 06/14/2021 12:00 AM RACK WORKER LIPID PANEL (EXTERNAL RESULT) Routine 02/14/2021 8:25 [...] AM CDT RESULTS FOUND IN CARE EVERYWHERE [address] [address] Provider Outside LAB - HIM EXTERNAL R ESULT Performing Organization Address City/[facility]/ZIP Co de Phone Number EXTERNAL LAB External Lab * DEXA - HIM SCAN (06/14/2021 12:00 AM RACK WORKER) Anatomical Region Laterality Modality Other 06/14/2021 Provider [...] AM CDT RESULTS FOUND IN CARE EVERYWHERE [address] [address] Provider Outside LAB - HIM EXTERNAL R ESULT EXTERNAL LAB External Lab * [place] Digital Archive [facility] (10/04/2016 12:00 AM CDT) Narrative Service Account, Quang Hornk - 10/12/2021 2:20 PM CDT Images were obtained from an external facility. ??Click PACS Images hyperlink to view images. ??Textual results have been scanned into the media tab. Radiology Non-Fv Credentialed Provider I MG EXTERNAL IMAGING ORDERABLES from Last 3 Months or Most Recently Relevant to Health Maintenance Care Teams Auto Self Service Station Attendant Relationship Specialty Start Date End Date Rosana Quiroz MD PCP - General 06/14/07 Shara Trimble MD [address] [place] [address] 195 [place] [address] Surgery 09/01/21
--- OUTSIDE RECORDS SUMMARY | 2023-12-04 11:22 | XMS_ITS | Encounter Summary ---
Author Organization [facility] Address [address] [place] [address]. [place] [address] Care Team Providers Care Bronze Plater Name Role Phone Rosana Quiroz MD Primary Care Provider [phone] Shara Trimble MD Unavailable Shara Trimble MD Unavailable Encounter Details Date Type Department Care Team (Late st Contact Info) Description 06/10/2007 Office Visit-[facility] [address] [address] Oneil Son MD [address] [place] [address] Social History Tobacco Use Types Packs/Day [...] old Referring Physician: ROSANA QUIROZ Referring Clinic: [facility] CURRENT DIAGNOSES 1. - Chest Pain-unspecified, [...] pain started. She also recently moved to [place] from [place] because of her 's job and upon [...] - lives with ; Place of - [place]; REVIEW OF SYSTEMS GENERAL denies recent weight [...] episode and she ruled out for an NV by enzymes. She also had a stress [...] on filedocumented in this encounter Care Teams Bronze Plater Relationship Specialty Start Date End Date Rosana Quiroz MD PCP - General 06/14/07 Shara Trimble MD [address] [facility] [address] [place], [place] [id number] MD Surgery 09/01/21 Shara Trimble MD [address] [facility] [address] [place], [place] [id number] Assigned Surgical Provider 01/27/22 documented as of this encounter
--- OUTSIDE RECORDS SUMMARY | 2023-12-04 11:22 | XMS_ITS | Encounter Summary ---
Author Organization [facility] Address [address] [place] [address]. [place] [address] Care Team Providers Care Assessment Manager Name Role Phone Rosana Quiroz MD Primary Care Provider [phone] Shara Trimble MD Unavailable [phone] Shara Trimble MD Unavailable [phone] Encounter Details Date Type Department Care Team (Late st Contact Info) Description 10/12/2021 [facility] [address] [place] [address] [facility] Social History Tobacco Use Types [...] on filedocumented in this encounter Care Teams Assessment Manager Relationship Specialty Start Date End Date Rosana Quiroz MD PCP - General 06/14/07 Shara Trimble MD [address] [place] [id number] Surgery 09/01/21 Shara Trimble MD [address] [place] [address] Assigned Surgical Provider 01/27/22 documented as of this encounter
--- OUTSIDE RECORDS SUMMARY | 2023-12-04 11:22 | XMS_ITS | Encounter Summary ---
Author Organization [facility] Address [address] [place] [address]. [place] [address] Care Team Providers Care Woodworking Craftsman Name Role Phone Roasna Quiroz MD Primary Care Provider Shara Trimble MD Unavailable [phone] Shara Trimble MD Unavailable [phone] Encounter Details Date Type Department Care Team (Late st Contact Info) Description 10/16/2021 [facility] [address] [place] [address] Shara Trimble MD [address] [facility] [address] [place] [address] Social History Tobacco Use Types [...] on filedocumented in this encounter Care Teams Woodworking Craftsman Relationship Specialty Start Date End Date Rosana Quiroz MD PCP - General 06/14/07 Shara Trimble MD [address] [place] [address] Surgery 09/01/21 Shara Trimble MD [address] [place] [address] Assigned Surgical Provider 01/27/22 documented as of this encounter
--- OUTSIDE RECORDS SUMMARY | 2023-12-04 11:22 | XMS_ITS | Encounter Summary ---
Author Organization [facility] Address [address] [place] [address]. [place] [address] Care Team Providers Care Finished Cloth Examiner Name Role Phone Rosana Quiroz MD Primary Care Provider [phone] Shara Trimble MD Unavailable [phone] Shara Trimble MD Unavailable [phone] Encounter Details Date Type Department Care Team [...] on filedocumented in this encounter Care Teams Finished Cloth Examiner Relationship Specialty Start Date End Date Rosana Quiroz MD PCP - General 06/14/07 Shara Trimble MD [address] [place] [id number] Surgery 09/01/21 Shara Trimble MD [address] [id number] Assigned Surgical Provider 01/27/22 documented as of this encounter
[2023-12-04 14:26] LABS: Bacterial Vaginosis* Negative (Negative); Candida glab/krus NOT DETECTED (No Detected); Candida species NOT DETECTED (No Detected); Trichomonas vaginalis NOT DETECTED (No Detected)
== END 2023-12-04 11:19 | disposition home or self-care (01) ==
PROVIDERS: PCP Family Medicine; Visit Provider Registered Nurse
DX: R10.2 Pelvic and perineal pain (principal); R30.9 Painful micturition, unspecified
CPT/HCPCS: 81513; 87086; 87481; 87661

== ENCOUNTER 2024-09-03 07:30 | Outpatient (CLI) | payer MEDICARE, OTHER, SELFPAY | END 2024-09-03 07:31 | disposition home or self-care (01) | LOC: NFLDREF 09-10 23:53 | PROVIDERS: PCP Family Medicine; Referring Provider Family Medicine; Visit Provider Family Medicine | DX: E78.5 Hyperlipidemia, unspecified (principal); M81.0 Age-related osteoporosis without current pathological fracture; E21.3 Hyperparathyroidism, unspecified; Z86.39 Personal history of other endocrine, nutritional and metabolic disease | CPT/HCPCS: 80053; 80061; 82306; 82607; 83970 ==

== ENCOUNTER 2024-10-16 07:25 | Outpatient (CLI) | payer MEDICARE, OTHER, SELFPAY | END 2024-10-16 07:26 | disposition home or self-care (01) | LOC: NFLDREF 10-19 15:38 | PROVIDERS: PCP Family Medicine; Referring Provider Family Medicine; Visit Provider Family Medicine | DX: R74.01 Elevation of levels of liver transaminase levels (principal) | CPT/HCPCS: 80076 ==